=== PATIENT | male | born 1980 | race Caucasian/White ===

== ENCOUNTER → 2024-10-12 08:54 | Outpatient (CLI) | payer BC, SELFPAY ==
--- NOTE | 2024-10-12 08:59 | DI.MRI.S_ITS ---
PROCEDURE: MR CERVICAL SPINE WO CON INDICATIONS: arm radicular TECHNIQUE: Noncontrast sagittal T1 spin echo and T2 fast spin echo, sagittal STIR, foraminal oblique sagittal T2 fast spin echo, and axial gradient echo or T2 fast spin echo through the cervical spine. COMPARISON: None. FINDINGS: Image quality: Excellent. Alignment and Curvature: There is normal bony alignment. Bone Marrow: Marrow demonstrates normal overall signal. Spinal Cord: Visualized spinal cord has normal size and signal. No cerebellar tonsillar herniation. Paraspinous Soft Tissues: No paravertebral masses. Prevertebral soft tissues are normal in thickness. C2-C3: No canal stenosis. Left facet hypertrophy. Severe left foraminal narrowing with a degree of left foraminal C3 nerve root impingement. C3-C4: No canal stenosis or foraminal stenosis. C4-C5: No canal stenosis or foraminal stenosis. C5-C6: No canal stenosis or foraminal stenosis. C6-C7: Flat broad-based left paracentral disc protrusion which does not appear to abut the cord. There is no canal stenosis or foraminal stenosis. C7-T1: No canal stenosis or foraminal stenosis. IMPRESSION: 1. Severe left foraminal narrowing at C2-C3 with a degree of left foraminal C3 nerve root impingement. 2. No canal stenosis or foraminal stenosis at other levels. 3. Note made of a shallow left paracentral disc protrusion at C6-C7 without canal stenosis. Dictated by: Savage Yanes M.D. on 10/12/2024 at 11:19 Approved by: Savage Yanes M.D. on 10/12/2024 at 11:23
== END ==
PROVIDERS: Referring Provider Chiropractor; Visit Provider Chiropractor
DX: M50.123 Cervical disc disorder at C6-C7 level with radiculopathy (principal); M48.02 Spinal stenosis, cervical region
CPT/HCPCS: 72141